=== PATIENT | female | born 1980 | race African-American/Black ===

== ENCOUNTER 2020-09-26 18:31 | Emergency (ER) | payer MEDICAID ==
[~2020-09-26] VITALS: Ht 180.3 cm; Wt 145.0 kg
[2020-09-26] MEDS ORDERED: FLUORESCEIN SODIUM 1MG/STRIP RIGHTEYE ONE (19:15)
[2020-09-26] MEDS ORDERED: SODIUM CHLORIDE 0.9% 1,000 ML IV ONE (19:15)
[2020-09-26] MEDS ORDERED: TETANUS, DIPHTHERIA, PERTUSSIS VAC/PF 0.5ML (>7YR OLD) IM ONE (19:15)
[2020-09-26] MEDS ORDERED: TETRACAINE 0.5% OPHTH DROPS 4ML RIGHTEYE ONE (19:15)
[2020-09-26 19:53] LABS: BASOPHILS % 1.4 % (0.0-2.0); EOSINOPHILS % 2.2 % (0.0-5.0); HEMATOCRIT. 36.6 % (36.0-48.0); MEAN CORPUSCULAR HEMOGLOBIN 26.3 pg (28.0-32.0); MEAN CORPUSCULAR VOLUME 79.8 fL (81.0-99.0); MEAN PLATELET VOLUME 9.2 fl (7.4-10.4); MONOCYTES % 6.3 % (2.0-8.0); NEUTROPHILS % 68.1 % (40.0-76.0); PLATELET 188 x1000/uL (130-400); RED BLOOD CELL COUNT 4.58 mill/uL (4.2-5.4); RED CELL DISTRIBUTION WIDTH 16.4 % (11.6-14.6)
[2020-09-26 19:56] LABS: CHLORIDE 100 mEq/L (98-107)
[2020-09-26 19:58] LABS: PROTHROMBIN TIME 10.9 sec (9.6-11.0)
[2020-09-26 19:59] LABS: HCG SCREEN NEGATIVE
[2020-09-26 20:04] LABS: BETA HYDROXYBUTYRATE 0.3 mMol/L (0.0-0.3)
[2020-09-26] MEDS ORDERED: INSULIN REGULAR (HUMULIN R) UD 100 UNITS/ML SYR SUBCUT ONE (20:30)
[2020-09-26 21:24] LABS: CLARITY URINE TURBID (CLEAR); COLOR URINE YELLOW (YELLOW); KETONES URINE 1+ (NEGATIVE); LEUKOCYTE ESTERASE URINE 1+ (NEGATIVE); NITRITE URINE NEGATIVE (NEGATIVE); OCCULT BLOOD URINE 2+ (NEGATIVE); PH URINE 5.5 (4.5-8.0); PROTEIN URINE TRACE (NEGATIVE); SPECIFIC GRAVITY URINE 1.043 (1.005-1.030); UROBILINOGEN URINE 0.2 E.U./dL (0.2-1.0)
[2020-09-26] MEDS ORDERED: INSULIN REGULAR (HUMULIN R) 300UNITS/3ML VIAL SUBCUT NR (21:30)
[2020-09-26 22:00] VITALS: BP 174/87
[2020-09-26] MEDS ORDERED: IBUP-2028 MT (22:09)
[2020-09-26] MEDS ORDERED: HYDR-4346 MT (22:09)
[2020-09-26] MEDS ORDERED: CEPH500C2 MT (22:09)
[2020-09-26] MEDS ORDERED: METF-414 MT (22:09)
[2020-09-26] MEDS ORDERED: HYDR25TA MT (22:09)
== END 2020-09-26 22:37 | disposition home or self-care (01) ==
LOC: ER 18:31
DX: S02.2XXA Fracture of nasal bones, initial encounter for closed fracture (principal); E11.65 Type 2 diabetes mellitus with hyperglycemia; N39.0 Urinary tract infection, site not specified; I10 Essential (primary) hypertension; E86.0 Dehydration; Z79.899 Other long term (current) drug therapy; Y04.0XXA Assault by unarmed brawl or fight, initial encounter; Y93.89 Activity, other specified; Y92.89 Other specified places as the place of occurrence of the external cause; Y99.8 Other external cause status
CPT/HCPCS: 36415; 70450; 70486; 71045; 72125; 72170; 80053; 81003; 82010; 82962; 84703; 85025; 85610; 87086; 90471; 90715; 93005; 96360; 96372; 99285; J1815; J7030

== ENCOUNTER 2021-02-10 20:03 | Emergency (ER) | payer MEDICAID, OTHER ==
[~2021-02-10] VITALS: Ht 180.3 cm; Wt 135.0 kg
[~2021-02-10 20:03] MED LIST: CEPH500C2 MT; HYDR-4346 MT; HYDR25TA MT; IBUP-2028 MT; METF-414 MT
[2021-02-10] MEDS ORDERED: ACETAMINOPHEN 325MG TABLET PO ONE (21:15)
[2021-02-10] MEDS ORDERED: TOPUD MT (22:11)
[2021-02-10 22:20] VITALS: BP 124/67
== END 2021-02-10 22:19 | disposition home or self-care (01) ==
LOC: ER 20:03
DX: M79.601 Pain in right arm (principal)
CPT/HCPCS: 73060; 99283; 99406

== ENCOUNTER 2021-12-24 03:08 | Emergency (ER) | payer MEDICAID, OTHER ==
[~2021-12-24] VITALS: Ht 182.9 cm; Wt 100.0 kg
[~2021-12-24 03:08] MED LIST changes: +TOPUD MT
[2021-12-24 03:15] VITALS: BP 155/88
== END 2021-12-24 05:05 | disposition home or self-care (01) ==
LOC: ER 03:08
DX: M79.89 Other specified soft tissue disorders (principal); F10.229 Alcohol dependence with intoxication, unspecified; F91.8 Other conduct disorders; R73.9 Hyperglycemia, unspecified; I10 Essential (primary) hypertension; F41.0 Panic disorder [episodic paroxysmal anxiety]; Y90.9 Presence of alcohol in blood, level not specified
CPT/HCPCS: 82962; 99283